=== PATIENT | male | born 1960 | race Caucasian/White ===

== ENCOUNTER 2022-12-09 09:15 | Day surgery (SDC) | payer BC ==
[2022-12-08 11:22] VITALS: BMI 35.9
[2022-12-09] MEDS ORDERED: Heparin 5,000 UNITS/ML VIAL ONE (11:34)
[2022-12-09] MEDS ORDERED: Bupivacaine/Epinephrine 0.25% 30 ML VIAL ONE (14:17)
[2022-12-09] MEDS ORDERED: Methylene Blue 50 MG/10 ML AMPUL ONE (14:17)
[2022-12-09] MEDS ORDERED: Isosulfan Blue 50 MG/5 ML VIAL ONE (14:27)
[2022-12-09] MEDS ORDERED: Rocuronium Bromide 10 MG/ML (10ML VIAL) ONE (14:35)
[2022-12-09] MEDS ORDERED: PROPOFOL 200 MG/20 ML VIAL ONE (14:35)
[2022-12-09] MEDS ORDERED: Ondansetron PF 4 MG/2 ML Vial ONE (14:35)
[2022-12-09] MEDS ORDERED: Lidocaine 1% PF 5 ML VIAL ONE (14:35)
[2022-12-09] MEDS ORDERED: Dexamethasone 20 MG/5 ML VIAL ONE (14:35)
[2022-12-09] MEDS ORDERED: Phenylephrine 10 MG/ML VIAL ONE (14:35)
[2022-12-09] MEDS ORDERED: SUGAMMADEX SODIUM 200 MG/2 ML VIAL ONE (14:37)
[2022-12-09] MEDS ORDERED: Midazolam HCl 2 mg/2 ml Vial ONE (14:37)
[2022-12-09] MEDS ORDERED: Fentanyl 250 MCG/5 ML VIAL ONE (14:37)
[2022-12-09] MEDS ORDERED: Sodium Chloride 0.9% 100 ML ONE (14:44)
[2022-12-09] MEDS ORDERED: CEFAZOLIN 2 GM VIAL ONE (14:44)
== END 2022-12-09 19:30 | disposition home or self-care (01) ==
LOC: NM 09:15
PROVIDERS: ATTEND Plastic Surgery
DX: C43.59 Malignant melanoma of other part of trunk (principal); C77.3 Secondary and unspecified malignant neoplasm of axilla and upper limb lymph nodes; Z79.82 Long term (current) use of aspirin; Z79.899 Other long term (current) drug therapy
CPT/HCPCS: 78195; 88305; 88307; A9541; C1713; J1100; J1644; J2250; J2370; J2405; J2704; J3010; J3490; Q9968

== ENCOUNTER → 2022-12-28 | Outpatient (CLI) | payer BC | LOC: PET 08:00 | PROVIDERS: ATTEND Internal Medicine | DX: C43.59 Malignant melanoma of other part of trunk (principal) | CPT/HCPCS: 78816; A9552 ==

== ENCOUNTER 2022-12-29 08:53 | Outpatient (CLI) | payer BC | END 2022-12-29 08:54 | disposition home or self-care (01) | LOC: SCSMRI 08:53 | PROVIDERS: ATTEND Internal Medicine | DX: C43.59 Malignant melanoma of other part of trunk (principal); I67.82 Cerebral ischemia; G93.0 Cerebral cysts | CPT/HCPCS: 70553 ==

== ENCOUNTER 2024-06-17 13:51 | Emergency (ER) | payer BC ==
[2024-06-17 15:07] LABS: #Basophils 0.05 10x3/uL (0.0-0.2); %Basophils 0.9 % (0.0-1.0); %Eosinophils 7.9 % (0.0-10.0); %Lymphocytes 32.7 % (21.0-51.0); %Monocytes 9.7 % (0.0-10.0); %Neutrophils 48.2 % (42.0-75.0); Hematocrit 55.9 % (42.0-52.0); Hemoglobin 18.4 g/dL (14.0-18.0); Mean Corpuscular HGB CONC 32.9 g/dL (32.0-36.0); Mean Corpuscular Volume 88.2 fL (78.0-98.0); Mean Platelet Volume 9.7 fL (7.4-10.4); Platelet Count 275 10x3/uL (130-400); RBC Distribution Width 13.2 % (11.5-14.5); Red Blood Cell (RBC) Count 6.34 mill/uL (4.70-6.10)
[2024-06-17 15:26] LABS: ALT (SGPT) 87 U/L (8-55); AST (SGOT) 69 U/L (5-34); Albumin 3.4 g/dL (3.4-4.8); Alkaline Phosphatase 78 U/L (40-110); Anion Gap 18 mmol/L (10-20); BUN (Urea Nitrogen) 21 mg/dL (8.4-25.7); Bilirubin, Total 1.2 mg/dL (0.2-1.2); Calc. Creatinine Clearance 0 mL/min (70-130); Carbon Dioxide 21 mmol/L (23-31); Chloride 99 mmol/L (98-107); Estimated GFR 59; Globulin 3.6 g/dL (2.4-3.5); Glucose 93 mg/dL (80-115); Sodium 134 mmol/L (136-145)
[2024-06-17 15:30] LABS: Troponin I Less than 0.010 ng/mL (< 0.028)
== END 2024-06-17 16:00 | disposition home or self-care (01) ==
LOC: ERS 13:51
DX: R42 Dizziness and giddiness (principal); R51.9 Headache, unspecified; H53.8 Other visual disturbances; F17.220 Nicotine dependence, chewing tobacco, uncomplicated; I10 Essential (primary) hypertension
CPT/HCPCS: 36415; 71045; 80053; 84484; 85025; 93005

== ENCOUNTER 2024-07-04 09:30 | Outpatient (CLI) | payer BC | END 2024-07-04 09:31 | disposition home or self-care (01) | LOC: PET 09:30 | PROVIDERS: ATTEND Internal Medicine | DX: C43.59 Malignant melanoma of other part of trunk (principal); C78.7 Secondary malignant neoplasm of liver and intrahepatic bile duct; C79.89 Secondary malignant neoplasm of other specified sites; M89.9 Disorder of bone, unspecified | CPT/HCPCS: 78816; A9552 ==

== ENCOUNTER 2024-10-01 08:00 | Outpatient (CLI) | payer BC | END 2024-10-01 08:01 | disposition home or self-care (01) | LOC: PET 08:00 | PROVIDERS: ATTEND Internal Medicine | DX: C43.59 Malignant melanoma of other part of trunk (principal) | CPT/HCPCS: 78815; A9552 ==